=== PATIENT | male | born 1955 | race Caucasian/White ===

== ENCOUNTER 2018-01-18 06:06 | Inpatient (IN) | payer BC ==
[~2018-01-18] VITALS: Ht 190.5 cm; Wt 136.1 kg
[2018-01-18] VITALS (69 sets, daily range): BP systolic 57–105; BP diastolic 21–60
--- NOTE | 2018-01-18 06:10 | NUR ---
TO BED 9 BIB PARAMEDICS C/O L SIDED CHEST PAIN AND BACK PAIN. PT AAOX4 NO ACUTE DISTRESS NOTED, RESP EVEN AND UNLABORED. PER EMS REPORT PT WAS DISCHARGED FROM [facility] YESTERDAY TO THE SAME COMPLAINT. PLACE PT ON CARDIAC MONITORING, CONTINUOUS POX, O2@2L/NC.
[2018-01-18] MEDS ORDERED: ONDANSETRON HCL/PF 4 MG/2 ML VIAL ONE (06:30)
[2018-01-18] MEDS ORDERED: ONDANSETRON HCL/PF 4 MG/2 ML VIAL IVP ONE (06:30)
[2018-01-18] MEDS: IV NS 0.9% 1,000 ML BAG IV ONE ×2 (06:42→06:43)
[2018-01-18 06:46] LABS: BASOPHILS % (AUTO) 0.2 % (0.0-2.0); HEMATOCRIT 30 % (39-51); HEMOGLOBIN 10.3 g/dL (13.5-17.5); LYMPHOCYTES # (AUTO) 0.9 /CMM (0.8-4.8); LYMPHOCYTES % (AUTO) 7.6 % (20.0-44.0); MEAN CORPUSCULAR HGB CONC 34 g/dl (31.0-36.0); MEAN CORPUSCULAR VOLUME 90 fL (80-96); MONOCYTES # (AUTO) 0.2 /CMM (0.1-1.30); MONOCYTES % (AUTO) 2.1 % (2.0-12.0); NEUTROPHILS # (AUTO) 10.4 /CMM (1.8-8.9); NEUTROPHILS % (AUTO) 90.1 % (43.0-81.0); PLATELET COUNT (AUTO) 126 /CMM (150-450); RDW COEFFICIENT OF VARIATION 15.8 (11.5-15.0); RED BLOOD CELL COUNT(AUTO) 3.37 MIL/uL (4.5-6.0); WHITE BLOOD COUNT (AUTO) 11.6 K/uL (4.3-11.0)
[2018-01-18 07:05] LABS: TROPONIN I 0.039 ng/mL (0.00-0.056)
[2018-01-18 07:07] LABS: INR 1.03 (0.87-1.13)
--- NOTE | 2018-01-18 07:10 | NUR ---
RECEIVED REPORT FOR EMMY.
[2018-01-18 07:17] LABS: CALCIUM, SERUM 10.1 mg/dL (8.5-10.1); CREATININE 1.6 mg/dL (0.6-1.3); POTASSIUM 4.4 mmol/L (3.5-5.1)
[2018-01-18 07:23] LABS: ALBUMIN 2.2 g/dL (3.4-5.0); BILIRUBIN,DIRECT 0.5 mg/dL (0.0-0.2); TOTAL PROTEIN, SERUM 4.2 g/dL (6.4-8.2)
--- NOTE | 2018-01-18 07:50 | NUR ---
URINE OBTAINED AND SENT TO LAB.
[2018-01-18] MEDS ORDERED: IPRA0.2S9 IH (07:57)
[2018-01-18] MEDS ORDERED: DIGO125T PO (07:57)
[2018-01-18] MEDS ORDERED: METO25TA20 PO (07:57)
[2018-01-18] MEDS ORDERED: MAG30ORA PO (07:57)
[2018-01-18] MEDS ORDERED: HEPA500039 SQ (07:57)
[2018-01-18] MEDS ORDERED: POSA200O PO (07:57)
[2018-01-18] MEDS ORDERED: ACET-868 PO (07:57)
[2018-01-18] MEDS ORDERED: UMEC62.5 IH (07:57)
[2018-01-18] MEDS ORDERED: PRED20TA PO (07:57)
[2018-01-18] MEDS ORDERED: FURO-145 PO (07:57)
[2018-01-18] MEDS ORDERED: TAMS-12 PO (07:57)
[2018-01-18] MEDS ORDERED: LEVA0.6320 IH (07:57)
[2018-01-18] MEDS ORDERED: FOLI1TAB16 PO (07:57)
[2018-01-18] MEDS ORDERED: IV NS 0.9% 1,000 ML BAG IV ONE (08:30)
[2018-01-18 08:31] LABS: APPEARANCE,URINE CLEAR (CLEAR); BILIRUBIN,URINE NEGATIVE (NEGATIVE); BLOOD, URINE NEGATIVE Ery/uL (NEGATIVE); COLOR,URINE YELLOW (YELLOW); KETONES,URINE NEGATIVE (NEGATIVE); LEUKOCYTE ESTERASE ,URINE NEGATIVE (NEGATIVE); NITRITE, URINE NEGATIVE (NEGATIVE); PROTEIN,URINE NEGATIVE (NEGATIVE); UGLUCOSE NEGATIVE (NEGATIVE); UROBILINOGEN,URINE 0.2 EU/dL (0.2)
--- NOTE | 2018-01-18 08:54 | NUR ---
PAGED DR. HOWARD FOR ADMISSION
[2018-01-18] MEDS ORDERED: MORPHINE SULFATE INJ 2 MG/ML DISP.SYRIN IV ONE (09:00)
[2018-01-18] MEDS ORDERED: MORPHINE SULFATE INJ 4 MG/ML DISP.SYRIN ONE (09:00)
--- NOTE | 2018-01-18 09:03 | NUR ---
REPORT GIVEN TO EDILSON KIM FOR EMMY UPON ADMISSION. PATIENT ASSIGNED TO ROOM 104
--- NOTE | 2018-01-18 09:25 | NUR ---
[address]ND PAGE TO DR. HOWARD FOR ADMISSION
--- NOTE | 2018-01-18 09:40 | NUR ---
VERBAL ORDER BY DR. HAWK FOR 3RD BAG OF NS. GIVEN VIA PRESSURE BAG, RIGHT WRIST, 18G, IVPB.
--- NOTE | 2018-01-18 09:55 | NUR ---
VERBAL ORDER DR HAWK ETOMIDATE 20 MG SUX 120 MG
--- NOTE | 2018-01-18 09:55 | NUR ---
ETOMIDATE 20 MG GIVEN
--- NOTE | 2018-01-18 09:56 | NUR ---
SUX 120 MG GIVEN
[2018-01-18] MEDS ORDERED: PROPOFOL 0 ML ONE (09:57)
--- NOTE | 2018-01-18 10:00 | NUR ---
ASSIGNED TO ICU 256
--- NOTE | 2018-01-18 10:00 | NUR ---
ROWE CATHETER INSERTED USING STERILE TECHNIQUE, 100 YELLOW CLEAR URINE OUTPUT NOTED
[2018-01-18] MEDS ORDERED: CT SWABBABLE VALVE TRANS SET 1 EA INFUS.SET MC ONE (10:04)
[2018-01-18] MEDS ORDERED: IOHEXOL-350 100 ML VIAL IV ONE (10:04)
--- NOTE | 2018-01-18 10:05 | NUR ---
PT TAKEN TO CT
[2018-01-18] MEDS ORDERED: MIDAZOLAM 50 MG/10 ML VIAL ONE (10:22)
--- NOTE | 2018-01-18 10:26 | NUR ---
VERBAL ORDER DR HAWK VERSED 5MG IV X1
--- NOTE | 2018-01-18 10:26 | NUR ---
PT BACK FROM CT
--- NOTE | 2018-01-18 10:50 | NUR ---
AT BEDSIDE FOR CENTRAL LINE INSERTION.
[2018-01-18 10:59] LABS: BAND % (MANUAL) 1 % (0.0-5.0); LYMPHOCYTES % (MANUAL) 6 % (16-48); MONOCYTES % (MANUAL) 4 % (0-11.0); NEUTROPHILS % (MANUAL) 89 (42-76)
[2018-01-18] MEDS ORDERED: ETOMIDATE 2 MG/ML VIAL IV ONE (11:00)
[2018-01-18] MEDS ORDERED: NOREPINEPHRINE 8 MG in IV D5W 500 ML IV PRN (11:00)
[2018-01-18] MEDS ORDERED: MIDAZOLAM HCL 100 MG in IV NS 0.9% 80 ML IV PRN (11:00)
[2018-01-18] MEDS ORDERED: MIDAZOLAM HCL 5 MG/5ML VIAL IV ONE (11:00)
[2018-01-18] MEDS ORDERED: SUCCINYLCHOLINE CHLORIDE 20 MG/ML VIAL IV ONE (11:00)
--- NOTE | 2018-01-18 11:25 | NUR ---
REPORT GIVEN TO DARELL KIM FOR EMMY UPON ADMISSION.
[2018-01-18] MEDS ORDERED: VANCOMYCIN 1 GM in IV D5W 250 ML IV SCH (11:30)
[2018-01-18] MEDS ORDERED: ZOSYN IVPB 3.375 G in IV D5W 50ml IV ONE (12:00)
[2018-01-18 12:29] LABS: IRON, SERUM 176 ug/dl (50-175); TOTAL IRON BINDING CAPACITY 212 ug/dl (250-450)
[2018-01-18] MEDS: NOREPINEPHRINE 8 MG in IV D5W 500 ML IV PRN ×2 (12:30→14:41)
--- NOTE | 2018-01-18 12:35 | NUR ---
MEDIA SALES EXECUTIVE NOTES RECEIVED PATIENT FROM ER , SEDATED WITH VERSED @ 3MG/HR , RESPONSIVE TO DEEP PAIN STIMULI , NOT IN ACUTE DISTRESS , RESPIRATIONS EVEN AND UNLABORED WITH SPO2 OF 100% VIA MECHANICAL VENT SETTINGS ORDERED , ETT 7.5/ IN PLACE , SR 85 ON BEDSIDE MONITOR , FC DRAINING WELL VIA GRAVITY WITH CLEAR YELLOW URINE , R SUBCLAVIAN TLC WITH VERSED @ 3MG/HR , LEVOPHED @ 16MCG/MIN INFUSING WELL , R WRIST @ 18 PATENT AND INTACT SL , , SKIN ASSESSMENT DONE , TOOK PICTURES AND PLACED IN THE CHART , WOUND CONSULT ORDERED , ALL NEEDS ATTENDED , BED ON LOW AND LOCKED POSITION , SIDE RAILS X2 ,CALL LIGHT WITHIN REACH , HOB @ 35 , WILL CONTINUE TO MONITOR .
--- NOTE | 2018-01-18 12:36 | NUR ---
PATIENT TRANSPORTED TO ICU, 255 VIA ACLS PROTOCOL. RNDARELL TO PROVIDE EMMY.
[2018-01-18] MEDS: IV NS 0.9% 1,000 ML IV PRN ×2 (12:52→19:09)
[2018-01-18] MEDS ORDERED: FEE PK DOSING 1 MIN EA MC ONE (12:54)
[2018-01-18] MEDS ORDERED: ZOLPIDEM TARTRATE 5 MG TABLET PO PRN (13:00)
[2018-01-18] MEDS ORDERED: PIPERACILLIN /TAZOBACTAM 3.375 G in IV D5W 100 ML IV SCH (13:00)
[2018-01-18] MEDS ORDERED: HYDROCODONE/APAP 5/325MG 1 EACH TABLET PO PRN (13:00)
[2018-01-18] MEDS ORDERED: ONDANSETRON HCL/PF 4 MG/2 ML VIAL IVP PRN (13:00)
[2018-01-18] MEDS ORDERED: ACETAMINOPHEN 325 MG TABLET PO PRN (13:00)
[2018-01-18] MEDS ORDERED: MAGNESIUM HYDROXIDE 30 ML UDC PO PRN (13:00)
[2018-01-18] MEDS: ENOXAPARIN SODIUM 40 MG/0.4 ML DISP.SYRIN SQ SCH (13:00)
[2018-01-18] MEDS ORDERED: MAG HYDROX/AL HYDROX/SIMETH 30 ML UDC PO PRN (13:00)
[2018-01-18] MEDS ORDERED: VANCOMYCIN 1 GM in IV NS 0.9% 250 ML IV SCH (13:00)
[2018-01-18 13:12] LABS: FERRITIN 4108 ng/mL (8-388); FREE PSA < 0.06 ng/mL (0.00-45); THYROID STIMULATING HORMONE 2.399 uIU/mL (0.358-3.74)
[2018-01-18] MEDS: PIPERACILLIN /TAZOBACTAM 3.375 G in IV NS 0.9% 50 ML IV SCH ×2 (13:48→19:51)
[2018-01-18 14:56] LABS: ABG BASE EXCESS -5.1 mmol/L; ABG OXYGEN SATURATION 98.7 % (92.0-98.5); ABG PCO2 28.5 mmHg (35.0-45.0); ABG PH 7.431 (7.350-7.450); ABG PO2 442.6 mmHg (75.0-100.0); AaDO2 241.9 mmHg; COHb 0.3 % (0.5-1.5); MetHb 0.9 % (0.0-1.5); O2Hb 97.5 % (94.0-97.0); PEEP,BG 0 cm H2O; SITE, ABG Right Radial; VT, ABG 600 mL
[2018-01-18] MEDS: NOREPINEPHRINE 16 MG in IV D5W 500 ML IV PRN ×2 (16:25→23:01)
[2018-01-18] MEDS: PROPOFOL 100 ML IV PRN (16:26)
--- NOTE | 2018-01-18 16:30 | NUR ---
SEAT COVER CUTTER NOTES PATIENT STABLE S/P US GUIDED THORACENTESIS OF THE LEFT LUNG NOTED WITH 600ML CLEAR PINK OUTPUT , SPECIMEN LABELED AND SENT TO LAB . AWAITING FOR STAT CHEST XRAY RESULT
--- NOTE | 2018-01-18 16:32 | NUR ---
PROPERTY CONDITION ASSESSOR NOTES TABITHA LAYNE RN NOTIFIED THAT PT IS MAX ON LEVOPHED , PER MD START NEOSYNEPRINE QUAD DOSE , ORDERS CARRIED OUT BY CHARGE NURSE
[2018-01-18] MEDS: PHENYLEPHRINE 80 MG in IV NS 0.9% 250 ML IV PRN ×2 (16:50→21:38)
--- NOTE | 2018-01-18 17:00 | NUR ---
ENGAGEMENT MANAGER NOTES DIPRIVAN HELD , SEDATION VACATION , NO RESPONSE VIA DEEP PAIN STIMULI , PT NOTED WITH POSITIVE GAG AND COUGH REFLEX , PUPILS PERRLA 2 MM BRISK , WILL CONTINUE TO MONITOR.
--- NOTE | 2018-01-18 17:13 | NUR ---
LICENSING SPECIALIST NOTES NOTIFIED DR HOWARD THAT PATIENT IS ON MAX DOSE OF LEVO AND SHEREE , PER MD START VASOPRESSIN 0.04U/HR WITH NO TITRATION , AND START T ON HYDROCORTISONE 100MG IV TID FIRST DOSE NOW , AND FLORINEF 0.1MG FIRST DOSE NOW AND DAILY VIA NGT ,
[2018-01-18] MEDS ORDERED: FLUDROCORTISONE 0.1 MG TABLET PO SCH (17:30)
[2018-01-18] MEDS ORDERED: VASOPRESSIN INJ 50 UNIT in IV D5W 497.5 ML IV PRN (17:30)
[2018-01-18 17:43] LABS: HEMATOCRIT 21 % (39-51); HEMOGLOBIN 7.1 g/dL (13.5-17.5); LYMPHOCYTES # (AUTO) 2.1 /CMM (0.8-4.8); LYMPHOCYTES % (AUTO) 8.9 % (20.0-44.0); MEAN CORPUSCULAR HGB CONC 34 g/dl (31.0-36.0); MEAN CORPUSCULAR VOLUME 90 fL (80-96); MONOCYTES # (AUTO) 0.5 /CMM (0.1-1.30); MONOCYTES % (AUTO) 2.3 % (2.0-12.0); NEUTROPHILS # (AUTO) 20.8 /CMM (1.8-8.9); NEUTROPHILS % (AUTO) 88.8 % (43.0-81.0); RDW COEFFICIENT OF VARIATION 16.4 (11.5-15.0); RED BLOOD CELL COUNT(AUTO) 2.35 MIL/uL (4.5-6.0); WHITE BLOOD COUNT (AUTO) 23.4 K/uL (4.3-11.0)
[2018-01-18] MEDS: HYDROCORTISONE SOD SUCCINATE 100 MG/2 ML VIAL IV SCH (17:48)
--- NOTE | 2018-01-18 17:57 | NUR ---
RT END OF THE SHIFT REPORT, PT. 62 Y OLD MALE CALLED FROM ER INTUBATION BY ED @[id number] WITH ETT # 7.5 @ 26 CM LIPLINE SECURED GOOD COLOR EXCHANGED T/O CAPNOGRAPHY. B/S BILATERALLY NOTED X4 RT AT THE BEDSIDE. PLACED ON VENT WITH NOTED SETTINGS, VENT ALARMS ARE SET AND AUDIBLE WITH AMBU BAG AT THE BEDSIDE. BRANCHER CUFF PRESSURE NOTED. VENT IS PLUGGED INTO RED OUTLET. B/S BILATERALLY RALES EQUAL CHEST RISE NOTED. SX MODERATE THICK YELLOW SECRETIONS. NO RESPIRATORY DISTRESS NOTED T/O SHIFT, WILL CONTINUE TO MONITOR. FIO2 TITRATED POST ABG , REPORT WILL BE GIVEN TO PM SHIFT. PT. REMAIN STABLE. Addendum: 01/18/18 at 1803 by GUY HAYNES RT Amended: Links added.
--- NOTE | 2018-01-18 17:57 | NUR ---
FORWARDER OPERATOR NOTES NOTIFIED DR HOWARD REGARDING REPEAT CBC RESULT RECEIVED ORDER FOR 2 UNITS PRBC AND STOOL OB X3 , ORDERS CARRIED OUT
--- NOTE | 2018-01-18 18:24 | NUR ---
GAME SHOW HOST NOTES NOTIFIED DR HOWARD REGARDING LACTIC ACID OF 2.3 ,AWAITING FOR CALL BACK
--- NOTE | 2018-01-18 18:40 | NUR ---
CELL POURER NOTES MD AWARE OF REPEAT LACTIC OF 2.3 , NO NEW ORDERS RECEIVED
[2018-01-18 18:42] LABS: PLATELET COUNT (AUTO) 165 /CMM (150-450)
[2018-01-18 18:46] LABS: BAND % (MANUAL) 1 % (0.0-5.0); LYMPHOCYTES % (MANUAL) 11 % (16-48); MONOCYTES % (MANUAL) 2 % (0-11.0); NEUTROPHILS % (MANUAL) 86 (42-76)
--- NOTE | 2018-01-18 18:50 | NUR ---
ADVANCED PRACTICE PSYCHIATRIC NURSE NOTES DR HOWARD AT BEDSIDE , EXPLAINED THE PLAN OF CARE AND PT PROGNOSIS AT THE FAMILY , NOTIFIED DR HOWARD THAT PT IS ON MAX DOSE OF LEVO , SHEREE AND VASO , ASKED IF HE WANTS TO ADD 4TH PRESSORS , MD AWARE . NO NEW ORDERS RECEIVED
--- NOTE | 2018-01-18 19:10 | NUR ---
SUPERVISOR SCREEN MAKING NOTES PATIENT STILL SEDATED ON DIPRIVAN 5MC KG/MIN RESPONSIVE TO DEEP PAIN STIMULI , NOT IN ACUTE DISTRESS , RESPIRATIONS EVEN AND UNLABORED WITH SPO2 OF 100% VIA MECHANICAL VENT SETTINGS ORDERED , ETT 7.[address] , ST 120'S ON BEDSIDE MONITOR , FC DRAINING WELL VIA GRAVITY WITH CLEAR YELLOW URINE , R SUBCLAVIAN TLC WITH , LEVOPHED , SHEREE , VASO ON MAX DOSE INFUSING WELL , R WRIST @ 18 PATENT AND INTACT SL , ALL NEEDS ATTENDED , BED ON LOW AND LOCKED POSITION , SIDE RAILS X2 ,CALL LIGHT WITHIN REACH , HOB @ 35 , WILL CONTINUE TO MONITOR .
--- NOTE | 2018-01-18 19:20 | NUR ---
ICU/RN RECEIVED PT UNRESPONSIVE TO VERBAL OR TACTILE STIMULATION,OD DIPRIVAN DRIP AT 5MCG/KG/MIN.ON VASOPRESSOR X3 LEVOPHED, PHENYLEPHRINE AND PITRESSIN MAXIMUM DOSE.SBP FROM 76-82MMHG.
--- NOTE | 2018-01-18 20:15 | NUR ---
ICU/BAGGAGE AGENT SUPERVISOR AT BED SIDE VISITING,DETAILED REPORT GIVEN.REMAINS OFF LEVOPHED,NO CHANGE ON NEURO STATUS.
--- NOTE | 2018-01-18 20:30 | NUR ---
ICU/RN LESLIE GAN NOTIFIED ABOUT VANCOMYCIN DOSE PT. HAVE 2 DIFFERENT DOSES,AND SAID TO CALL PHARMACY.LEFT MESSAGE TO PHARMACY.
--- NOTE | 2018-01-18 21:20 | NUR ---
ICU/RN SPOKE TO PHARMACIST EXTRACT WRINGER RE:VANCOMYCIN DOSING AND SHE SAID"DO NOT GIVE VANCOMYCIN FOR TONIGHT."
[2018-01-18] MEDS ORDERED: NOREPINEPHRINE 4 MG/4 ML AMPUL IV ONE (21:21)
[2018-01-18] MEDS ORDERED: PHENYLEPHRINE 10 MG/ML VIAL ONE (21:22)
[2018-01-18] MEDS ORDERED: IV NS 0.9% 500 ML IV ONE (21:30)
--- NOTE | 2018-01-18 21:30 | NUR ---
ICU/RN SPOKE W/ ELVIA ASSURANCE SENIOR RE:PT'S CONDITION-LOW BP AND LACTIC ACID OF 2.8.ORDERS RECEIVED AND CARRIED OUT
--- NOTE | 2018-01-18 22:05 | NUR ---
ICU/RN DR. COULTER CALLED TO INQUIRE ABOUT PT'S CONDITION,CONDITION REPORT GIVEN,MD WILL SEE PT IN AM.
[2018-01-19] VITALS (117 sets, daily range): BP systolic 46–152; BP diastolic 25–108
[2018-01-19] MEDS ORDERED: VANCOMYCIN 0.75 GM in IV NS 0.9% 250 ML IV SCH ×2
[2018-01-19] MEDS ORDERED: VANCOMYCIN 1 GM VIAL ONE (00:21)
[2018-01-19] MEDS ORDERED: VANCOMYCIN 2 GM in IV NS 0.9% 500 ML IV ONE (01:00)
[2018-01-19] MEDS: PHENYLEPHRINE 80 MG in IV NS 0.9% 250 ML IV PRN ×4 (01:17→15:04)
--- NOTE | 2018-01-19 01:30 | NUR ---
ICU/RECREATION ATTENDANT SUPERVISOR REMAINS AT BEDSIDE,PT AGITATED SECONDARY TO FAMILY CONTINUOUSLY STIMULATING PATIENT.EXPLAIN TO FAMILY RE:NEED NOT TO DO SO PT CAN NOT RECEIVE DIPRIVAN DUE TO LOW BP.FAMILY ACCEPTED EXPLANATION AND THEY DECIDED TO GO HOME,FAMILY REASSURED THAT IF THERE IS A CHANGE IN PT'S CONDITION I'LL GIVE THEM A CALL.
[2018-01-19] MEDS: PIPERACILLIN /TAZOBACTAM 3.375 G in IV NS 0.9% 50 ML IV SCH ×3 (02:24→15:05)
--- NOTE | 2018-01-19 03:11 | NUR ---
ICU/RN PT RECEIVING SECOND UNIT OF PRBC,SBP 81-95MMHG.
--- NOTE | 2018-01-19 03:45 | NUR ---
ICU/RN LEVOPHED,PHENYLEPHRINE,AND PITRESSIN DRIP SLOWLY BEING TITRATED.PT EXTREMELY AGITATED DIPRIVAN DRIP RESTARTED AT 5MC/KG/MIN.
[2018-01-19] MEDS ORDERED: PHENYLEPHRINE 10 MG/ML VIAL ONE (03:53)
[2018-01-19] MEDS: PROPOFOL 100 ML IV PRN (03:58)
[2018-01-19] MEDS: IV NS 0.9% 1,000 ML IV PRN ×2 (03:59→13:04)
[2018-01-19 04:32] LABS: HEMATOCRIT 33 % (39-51); HEMOGLOBIN 11.4 g/dL (13.5-17.5); LYMPHOCYTES # (AUTO) 1.7 /CMM (0.8-4.8); LYMPHOCYTES % (AUTO) 7.2 % (20.0-44.0); MEAN CORPUSCULAR HGB CONC 34 g/dl (31.0-36.0); MEAN CORPUSCULAR VOLUME 93 fL (80-96); MONOCYTES # (AUTO) 0.5 /CMM (0.1-1.30); MONOCYTES % (AUTO) 2.2 % (2.0-12.0); NEUTROPHILS # (AUTO) 21.1 /CMM (1.8-8.9); NEUTROPHILS % (AUTO) 90.6 % (43.0-81.0); PLATELET COUNT (AUTO) 130 /CMM (150-450); RDW COEFFICIENT OF VARIATION 15.7 (11.5-15.0); RED BLOOD CELL COUNT(AUTO) 3.61 MIL/uL (4.5-6.0); WHITE BLOOD COUNT (AUTO) 23.3 K/uL (4.3-11.0)
[2018-01-19 04:49] LABS: CALCIUM, SERUM 8.5 mg/dL (8.5-10.1); PHOSPHORUS 4.7 mg/dL (2.5-4.9); POTASSIUM 5.4 mmol/L (3.5-5.1)
[2018-01-19 04:56] LABS: THYROID STIMULATING HORMONE 2.972 uIU/mL (0.358-3.74)
[2018-01-19 04:57] LABS: BAND % (MANUAL) 3 % (0.0-5.0); LYMPHOCYTES % (MANUAL) 5 % (16-48); MONOCYTES % (MANUAL) 2 % (0-11.0); NEUTROPHILS % (MANUAL) 90 (42-76)
--- NOTE | 2018-01-19 06:50 | NUR ---
ICU/RN DR DRAKE IN TO SEE PT,CONDITION REPORT GIVEN.ORDERS GIVEN.PT CURRENTLY ON PITRESSIN DRIP AT 0.02UNITS/MIN.LEVOPHED AT 32MCG/MIN,PHENYLEPHRINE AT 280MCG/MIN.
[2018-01-19] MEDS: NOREPINEPHRINE 16 MG in IV D5W 500 ML IV PRN ×3 (06:59→20:36)
--- NOTE | 2018-01-19 07:00 | NUR ---
ICU/RN REPORT AND CARE OF PT.GIVEN TO MAYCO KIM.
--- NOTE | 2018-01-19 07:10 | NUR ---
received patient sedated dip running at 5mcg/kg/min and patient agitated biting at ett; bite block in place. will titrate dip up for comfort as tolerated. ett 7.5 26 at lip. patient vent settings as ordered. tolerating well. grace cath in place draining to gravity. og tube 65 at lip. patient present with right wrist saline lock. right subclavian central with diprovan running at 5 mcg/kg/min, vasopressin at 0.02 u/min (per md ferrer continue running. new order placed for updated order) , levophed at 32mcg/min, and irseal at 280mcg/min. will titrate as needed. Addendum: 01/19/18 at [address] RN safety precautions in place aspiration precautions in place. will round prn
--- NOTE | 2018-01-19 07:15 | NUR ---
patient agitated increased dip to 10mcg/kg/min and levo to 34mcg/min
--- NOTE | 2018-01-19 07:20 | NUR ---
dr ferrer at bedside. updated on patient condition, labs, vs. per md in regards to pneumothorax on cest x increase fi02 to 100% and obtain abg. md aware of low na 125 and k of 5.4. patient pale, cold and clammy. pulses thready on peripheral check.
[2018-01-19] MEDS: HYDROCORTISONE SOD SUCCINATE 100 MG/2 ML VIAL IV SCH ×3 (08:05→16:56)
[2018-01-19 08:06] LABS: IMMUNOGLOBULIN A, SERUM 6 mg/dL (61-437); IMMUNOGLOBULIN G, SERUM 51 mg/dL (700-1600); IMMUNOGLOBULIN M, SERUM 16 mg/dL (20-172)
[2018-01-19 08:17] LABS: ABG BASE EXCESS -8.3 mmol/L; ABG OXYGEN SATURATION 98.8 % (92.0-98.5); ABG PCO2 26.2 mmHg (35.0-45.0); ABG PH 7.382 (7.350-7.450); AaDO2 183.8 mmHg; COHb 0.2 % (0.5-1.5); O2Hb 97.6 % (94.0-97.0); PEEP,BG 0 cm H2O; SITE, ABG Left Radial
[2018-01-19] MEDS: VASOPRESSIN INJ 50 UNIT in IV D5W 497.5 ML IV PRN (09:38)
[2018-01-19] MEDS: Z GUARD REMEDY 2 OZ OINT TP PRN ×2 (09:38→16:57)
[2018-01-19 09:39] LABS: ALBUMIN 1.8 g/dL (3.4-5.0); BILIRUBIN,DIRECT 0.3 mg/dL (0.0-0.2); BILIRUBIN,TOTAL 0.8 mg/dL (0.2-1.0); TOTAL PROTEIN, SERUM 3.6 g/dL (6.4-8.2)
[2018-01-19 10:27] LABS: TROPONIN I 0.097 ng/mL (0.00-0.056)
--- NOTE | 2018-01-19 10:47 | NUR ---
DR MOJICA AT BEDSIDE. MD UPDATED ON PATIENT CONDITION, VS, LABS, URINE OUTPUT AND MEDICATIONS, AND CHEST X. PER MD TITRATE VENT SETTINGS TV 500-550 TOLERATED. AND TITRATE FI02; RT ABBOTT AT BEDSIDE. TV NOW 500 AND FI02 60%. PER MD DISCONTINUE PROPOFOL DRIP AND ORDER VERSED DRIP FOR SEDATION.
--- NOTE | 2018-01-19 10:48 | NUR ---
RT PER DR MOJICA VT LOWERED TO 500 AND FIO2 TITRATED TO 60%. VENT ALARMS CHECKED + AUDIBLE. CUFF PRESSURE CHECKED DISTILLERY LABORER. SX'D WITH SCANT CLEAR SECRETIONS. B/S JANESSA BLACKBURN. PATIENT IN CRITICAL CONDITION. FAMILY AT BEDSIDE. Addendum: 01/19/18 at 1049 by SCAR HUI RT Amended: Links added.
--- NOTE | 2018-01-19 11:09 | NUR ---
DR HOWARD AT BEDSIDE. NOTIFIED MD CURRENT DRIP STATUS LEVO 36, SHEREE 280 AND RECEIVED VASOPRESSIN AT 0.02. PER MD KEEP VASOPRESSIN AT 0.04 WHEN IN USE AND IF BP STABLE STOP VASOPRESSIN AND MAX OUT LEVO AND SHEREE FIRST BEFORE RESUMING VASOPRESSIN. PER OK TO CONTINUE LOVENOX.
[2018-01-19] MEDS: FLUDROCORTISONE 0.1 MG TABLET PO SCH ×2 (11:23→17:13)
[2018-01-19] MEDS ORDERED: FLUDROCORTISONE 0.1 MG TABLET PO SCH (12:00)
[2018-01-19] MEDS ORDERED: SODIUM POLYSTYRENE SULFONATE 15 G/60 ML BOTTLE NG ONE (12:00)
--- NOTE | 2018-01-19 12:00 | NUR ---
DR RENETTA MILLER AT BEDSIDE. UPDATED ON PATIENT CONDITION, VS, LABS AND MINIMAL URINE OUTPUT. PER MD INITIATE CVP MONITORING; CURRENT READING 8. MD AWARE OF ELECTROLYTE LABS.
--- NOTE | 2018-01-19 12:00 | NUR ---
RT CANCELLED DUPLICATE ABG ORDER PER POLICY
[2018-01-19] MEDS: ENOXAPARIN SODIUM 40 MG/0.4 ML DISP.SYRIN SQ SCH (12:04)
--- NOTE | 2018-01-19 12:10 | NUR ---
NOTIFIED DR MOJICA OF UPDATED ABG RESULTS. PER MD PLACE PATIENT ON 40% FI02. NO OTHER ORDERS
[2018-01-19 12:17] LABS: ABG BASE EXCESS -9.6 mmol/L; ABG OXYGEN SATURATION 98.1 % (92.0-98.5); ABG PCO2 23.8 mmHg (35.0-45.0); ABG PH 7.379 (7.350-7.450); ABG PO2 165.2 mmHg (75.0-100.0); AaDO2 92.6 mmHg; COHb 0.3 % (0.5-1.5); MetHb 0.8 % (0.0-1.5); PEEP,BG 0 cm H2O; SITE, ABG Left Radial
[2018-01-19] MEDS: MIDAZOLAM HCL 100 MG in IV NS 0.9% 80 ML IV PRN (12:21)
--- NOTE | 2018-01-19 12:55 | NUR ---
MEDICAL RECORDS RELEASE REQUEST SIGNED BY AND FAXED OVER TO DR JALLOH OFFICE. PATIENT MAXED OUT ON LEVO AND SHEREE AT THIS TIME. Addendum: 01/19/18 at [address] RN DISREGARD LEVO/SHEREE DRIP. INCORRECT. SEE IV SPREADSHEET
[2018-01-19] MEDS: ALBUMIN 25% 25 GM in PREMIX 1 EA IV SCH ×2 (13:06→17:13)
[2018-01-19] MEDS: VANCOMYCIN 1 GM in IV D5W 250 ML IV SCH ×2 (14:04→23:00)
--- NOTE | 2018-01-19 16:23 | NUR ---
continuing to increase versed drip per order. patient continues to be agitated and bite ett will continue to monitor. at this time patient is calm and cooperative.
--- NOTE | 2018-01-19 16:24 | NUR ---
GI specialist destinee at bedside. updated on patient condition, labs, vs. per md no diagnostics until more stable.
--- NOTE | 2018-01-19 17:45 | NUR ---
AT BEDSIDE PATIENT BECOMES AGITATED WHEN MOVED/SPOKEN TO. BITING ETT. TITRATING VERSED PER PROTOCOL
--- NOTE | 2018-01-19 19:00 | NUR ---
RN INITIAL NOTES RECEIVED THE PATIENT SEDATED ON BED WITH VERSED @ 6MCG/HR, EASILY AROUSABLE TO TOUCH STIMULI. CURRENTLY INTUBATED AND ON VENT WITH SETTINGS AC 12, TV 500, FIO2 40%, PEEP 0, ETT 7.5/26@LIP, SATURATING WELL, NO S/S OF RESP DISTRESS. SR ON THE MONITOR, HR 90'S. CURRENTLY ON LEVO @ 38MCG/MIN AND SHEREE @ 100MCG/MIN TO KEEP SBP > 90. OGT IS CLAMPED. ROWE IN PLACE WITH MINIMAL OUTPUT. RIGHT SUBCLAVIAN 3LUMEN WITH NS @ 125MLS/HR, FLUSHED AND PATENT, NO S/S OF INFILTRATION/INFECTION, DRESSING CDI. BED LOW AND LOCKED, SIDERAILS UP, BILATERAL SOFT WRIST RESTRAINTS IN PLACE FOR SAFETY. WILL MONITOR CLOSELY.
[2018-01-19] MEDS: MICAFUNGIN SODIUM 100 MG in IV NS 0.9% 100 ML IV SCH (19:22)
[2018-01-19] MEDS: MEROPENEM 500 MG in IV NS 0.9% 50 ML IV SCH (20:34)
[2018-01-20] VITALS (105 sets, daily range): BP systolic 79–118; BP diastolic 25–66
[2018-01-20] MEDS: FLUDROCORTISONE 0.1 MG TABLET PO SCH ×2 (00:01→05:03)
[2018-01-20] MEDS: ALBUMIN 25% 25 GM in PREMIX 1 EA IV SCH ×2 (00:01→05:04)
--- NOTE | 2018-01-20 02:30 | NUR ---
RN NOTES 0145: NOTIFIED ON-CALL FERRY CAPTAIN LESLIE GAN THAT PATIENT CONVERTED FROM SINUS RHYTHM TO AFIB/AFLUTTER AROUND 0145 WITH HR 130-140'S; CONFIRMED VIA STAT EKG. NOTIFIED HIM THAT PATIENT WAS CURRENTLY ON LEVO 36MCG/MIN AND SHEREE DRIP HAD BEEN OFF SINCE MIDNIGHT. UPON CONVERSION TO AFIB/AFLUTTER @ 0145, MEMBERSHIP SOLICITOR TURNED OFF LEVO DRIP THEN RESTARTED SHEREE @ 100MCG/MIN. 0230: HR REMAINS TO BE AFLUTTER WITH THE HR 90-120'S. PER LUCIAN NELSON, KEEP SHEREE @ MAX DOSE THEN RESTART LEVO TO KEEP SBP > 90.
[2018-01-20] MEDS: IV NS 0.9% 1,000 ML IV PRN ×2 (02:43→17:17)
[2018-01-20] MEDS: PHENYLEPHRINE 80 MG in IV NS 0.9% 250 ML IV PRN ×5 (02:44→22:12)
--- NOTE | 2018-01-20 03:25 | NUR ---
RN NOTES PATIENT CONVERTED TO SINUS RHYTHM WITH HR 90'S.
[2018-01-20 04:51] LABS: HEMATOCRIT 25 % (39-51); HEMOGLOBIN 8.3 g/dL (13.5-17.5); LYMPHOCYTES # (AUTO) 1.5 /CMM (0.8-4.8); LYMPHOCYTES % (AUTO) 5.7 % (20.0-44.0); MEAN CORPUSCULAR HGB CONC 34 g/dl (31.0-36.0); MEAN CORPUSCULAR VOLUME 92 fL (80-96); MONOCYTES # (AUTO) 0.2 /CMM (0.1-1.30); MONOCYTES % (AUTO) 0.6 % (2.0-12.0); NEUTROPHILS # (AUTO) 24.5 /CMM (1.8-8.9); NEUTROPHILS % (AUTO) 93.7 % (43.0-81.0); PLATELET COUNT (AUTO) 137 /CMM (150-450); RDW COEFFICIENT OF VARIATION 15.9 (11.5-15.0); RED BLOOD CELL COUNT(AUTO) 2.67 MIL/uL (4.5-6.0); WHITE BLOOD COUNT (AUTO) 26.2 K/uL (4.3-11.0)
[2018-01-20 05:05] LABS: ALBUMIN 2.2 g/dL (3.4-5.0); BILIRUBIN,TOTAL 0.8 mg/dL (0.2-1.0); CALCIUM, SERUM 7.8 mg/dL (8.5-10.1); CREATININE 2.4 mg/dL (0.6-1.3); MAGNESIUM 1.8 mg/dL (1.8-2.4); PHOSPHORUS 4.9 mg/dL (2.5-4.9); POTASSIUM 4.9 mmol/L (3.5-5.1); TOTAL PROTEIN, SERUM 4.1 g/dL (6.4-8.2)
[2018-01-20 05:09] LABS: TROPONIN I 0.086 ng/mL (0.00-0.056)
[2018-01-20 05:39] LABS: CREATININE, URINE 91.1 MG/DL (30.0-125.0)
[2018-01-20 05:42] LABS: BAND % (MANUAL) 4 % (0.0-5.0); LYMPHOCYTES % (MANUAL) 5 % (16-48); MONOCYTES % (MANUAL) 1 % (0-11.0); NEUTROPHILS % (MANUAL) 90 (42-76)
[2018-01-20 05:44] LABS: OCCULT BLOOD STOOL NEGATIVE (NEGATIVE)
--- NOTE | 2018-01-20 05:45 | NUR ---
PT RECEIVED ORALLY INTUBATED WITH 7.5 ETT @ 25CM PT CURRENTLY ON [facility] VENT AND TOLERATING SETTINGS ORDERED PER MD, SPUTUM SAMPLE WAS SENT TO LAB, JULIO AYALA, SAMPLE SIZE APPROX. 10CC OF THICK WHITE SECRETION COLLECTED. VENT ALARMS ARE AUDIBLE AND VENT PLUGGED INTO RED OUTLET. PT AMBU BAG AT BEDSIDE, AND PT CURRENTLY TOLERATING SETTINGS
[2018-01-20] MEDS: NOREPINEPHRINE 16 MG in IV D5W 500 ML IV PRN ×2 (05:55→17:16)
--- NOTE | 2018-01-20 06:00 | NUR ---
RN CLOSING NOTES PT REMAINS STABLE OF THE MOMENT. PT IS STILL SR, HR 80-90'S. ON LEVO @ 14MCG/MIN, SHEREE @ 300MCG/MIN, AND VERSED @ 7MG/HR. ALL DUE MEDS GIVEN, AM CARE PROVIDED. WILL ENDORSE EMMY TO AM RN
[2018-01-20] MEDS: MIDAZOLAM HCL 100 MG in IV NS 0.9% 80 ML IV PRN ×2 (07:31→19:05)
--- NOTE | 2018-01-20 07:36 | NUR ---
JOURNAL ENTRY AUDIT CLERK RECEIVED PATIENT FROM THE PREVIOUS SHIFT. PATIENT IS IN BED. ORALLY INTUBATED. VENT SETTINGS REVIEWED AND VERIFIED. AFEBRILE. SINUS RHYTHM ON MONITOR. TWO PRESSORS FOR BP SUPPORT. CVP MONITORING. ROWE DRAINING URINE TO GRAVITY. TURNED AND REPOSITIONED FOR COMFORT AND WOUND PREVENTION. WILL CONTINUE TO MONITOR AND PROVIDE CARE.
[2018-01-20] MEDS: HYDROCORTISONE SOD SUCCINATE 100 MG/2 ML VIAL IV SCH ×2 (08:38→17:12)
[2018-01-20] MEDS: MEROPENEM 500 MG in IV NS 0.9% 50 ML IV SCH ×2 (08:38→20:40)
[2018-01-20] MEDS: HEPARIN SODIUM, PORCINE 5000 UNITS/1 ML VIAL SQ SCH ×2 (08:39→20:17)
--- NOTE | 2018-01-20 09:19 | NUR ---
JUNIOR JAVA DEVELOPER SEDATION VACATION. patient rr increases, biting at ett, thrashing head. not tolerating vacation well. restarted on versed after 20 min.
[2018-01-20] MEDS: VANCOMYCIN 1 GM in IV D5W 250 ML IV SCH (12:00)
[2018-01-20] MEDS: Z GUARD REMEDY 2 OZ OINT TP SCH ×2 (12:25→17:12)
--- NOTE | 2018-01-20 17:58 | NUR ---
RT SHIFT REPORT, PT. 62 Y OLD MALE REMAIN ORALLY INTUBATED ETT # 7.5 @ 25 CM LIPLINE WITH NOTED SETTINGS, VENT ALARMS ARE SET AND AUDIBLE WITH AMBU BAG AT THE BEDSIDE. UPFITTER CUFF PRESSURE NOTED. VENT IS PLUGGED INTO RED OUTLET. B/S BILATERALLY RALES EQUAL CHEST RISE NOTED. HME CHANGED SX SMALL THICK PALE SECRETIONS. NO RESPIRATORY DISTRESS NOTED T/O SHIFT, WILL CONTINUE TO MONITOR. REPORT WILL BE GIVEN TO PM SHIFT. PT REMAIN STABLE. AMBU BAT REMAIN AT THE BEDSIDE. Addendum: 01/20/18 at 1800 by GUY HAYNES RT Amended: Links added.
--- NOTE | 2018-01-20 19:00 | NUR ---
RN INITIAL NOTES RECEIVED THE PATIENT SEDATED ON BED WITH VERSED @ 10MCG/HR, EASILY AROUSABLE TO TOUCH STIMULI. CURRENTLY INTUBATED AND ON VENT WITH SETTINGS AC 12, TV 500, FIO2 40%, PEEP 0, ETT 7.5/26@LIP, SATURATING WELL, NO S/S OF RESP DISTRESS. SR ON THE MONITOR, HR 70'S. CURRENTLY ON LEVO @ 6MCG/MIN AND SHEREE @ 300MCG/MIN TO KEEP SBP > 90. OGT IS CLAMPED. ROWE IN PLACE WITH MINIMAL OUTPUT. RIGHT SUBCLAVIAN 3LUMEN WITH NS @ 50MLS/HR, RIGHT EJ 20G IV, BOTH FLUSHED AND PATENT, NO S/S OF INFILTRATION/INFECTION, DRESSING CDI. BED LOW AND LOCKED, SIDERAILS UP, BILATERAL SOFT WRIST RESTRAINTS IN PLACE FOR SAFETY. WILL MONITOR CLOSELY.
--- NOTE | 2018-01-20 19:25 | NUR ---
PT RECEIVED ORALLY INTUBATED WITH 7.5 ETT @ 25CM ON [facility] VENT WITH NOTED SETTINGS. PT IS TOLERATING VENT SETTINGS. VENT ALARMS SET AND AUDIBLE, VENT PLUGGED INTO RED OUTLET, AMBU BAG @ BEDSIDE. SUCTIONED SMALL AMOUNT OF WHITE THICK SECRETIONS. NO RESPIRATORY DISTRESS NOTED AT THIS TIME. WILL CONTINUE TO MONITOR.
[2018-01-20] MEDS: MICAFUNGIN SODIUM 100 MG in IV NS 0.9% 100 ML IV SCH (19:39)
[2018-01-21] VITALS (110 sets, daily range): BP systolic 68–128; BP diastolic 38–84
[2018-01-21] MEDS: PHENYLEPHRINE 80 MG in IV NS 0.9% 250 ML IV PRN ×5 (01:21→22:09)
[2018-01-21] MEDS: MIDAZOLAM HCL 100 MG in IV NS 0.9% 80 ML IV PRN ×2 (05:00→14:35)
[2018-01-21] MEDS: IV NS 0.9% 1,000 ML IV PRN (05:40)
[2018-01-21 05:54] LABS: HEMATOCRIT 24 % (39-51); HEMOGLOBIN 7.9 g/dL (13.5-17.5); LYMPHOCYTES # (AUTO) 1.4 /CMM (0.8-4.8); LYMPHOCYTES % (AUTO) 7.5 % (20.0-44.0); MEAN CORPUSCULAR HGB CONC 33 g/dl (31.0-36.0); MEAN CORPUSCULAR VOLUME 92 fL (80-96); MONOCYTES # (AUTO) 0.1 /CMM (0.1-1.30); MONOCYTES % (AUTO) 0.7 % (2.0-12.0); NEUTROPHILS # (AUTO) 17.6 /CMM (1.8-8.9); NEUTROPHILS % (AUTO) 91.8 % (43.0-81.0); PLATELET COUNT (AUTO) 144 /CMM (150-450); RDW COEFFICIENT OF VARIATION 16.6 (11.5-15.0); RED BLOOD CELL COUNT(AUTO) 2.57 MIL/uL (4.5-6.0); WHITE BLOOD COUNT (AUTO) 19.2 K/uL (4.3-11.0)
[2018-01-21 05:55] LABS: BAND % (MANUAL) 5 % (0.0-5.0)
[2018-01-21 05:56] LABS: LYMPHOCYTES % (MANUAL) 7 % (16-48); NEUTROPHILS % (MANUAL) 88 (42-76)
[2018-01-21 06:10] LABS: *SPE A/G RATIO 1.7 (0.7-1.7); *SPE ALBUMIN 1.9 g/dL (2.9-4.4); *SPE ALPHA-1-GLOBULIN 0.2 g/dL (0.0-0.4); *SPE ALPHA-2-GLOBULIN 0.5 g/dL (0.4-1.0); *SPE BETA GLOBULIN 0.4 g/dL (0.7-1.3); *SPE GLOBULIN, TOTAL 1.1 g/dL (2.2-3.9); *SPE M-SPIKE Not Observed g/dL (Not Observed); *SPEGAMMA GLOBULIN 0.1 g/dL (0.4-1.8)
--- NOTE | 2018-01-21 06:10 | NUR ---
RN CLOSING NOTES PT REMAINS STABLE OF THE MOMENT. ALL DUE MEDS GIVEN, AM CARE PROVIDED. WILL ENDORSE EMMY TO AM RN
[2018-01-21 07:07] LABS: CALCIUM, SERUM 7.9 mg/dL (8.5-10.1); CREATININE 2.7 mg/dL (0.6-1.3); MAGNESIUM 2.1 mg/dL (1.8-2.4); PHOSPHORUS 6.2 mg/dL (2.5-4.9); POTASSIUM 5.3 mmol/L (3.5-5.1)
--- NOTE | 2018-01-21 07:40 | NUR ---
CLINICAL BUSINESS ANALYST RECEIVED PATIENT FROM THE PREVIOUS SHIFT. PATIENT IS IN BED. RESTING COMFORTABLY. SEDATED ON VERSED 10 MG/HR. NO ACUTE DISTRESS.VENT SETTINGS REVIEWED AND VERIFIED. RESTRAINTS ARE ON FOR SAFETY. WILL CONTINUE TO MONITOR AND PROVIDE CARE.
[2018-01-21] MEDS ORDERED: VANCOMYCIN 1 GM in IV D5W 250 ML IV SCH (08:00)
[2018-01-21] MEDS: HYDROCORTISONE SOD SUCCINATE 100 MG/2 ML VIAL IV SCH ×2 (09:50→17:26)
[2018-01-21] MEDS: Z GUARD REMEDY 2 OZ OINT TP SCH ×2 (09:50→17:25)
[2018-01-21] MEDS: HEPARIN SODIUM, PORCINE 5000 UNITS/1 ML VIAL SQ SCH ×2 (09:51→20:38)
[2018-01-21] MEDS: MEROPENEM 500 MG in IV NS 0.9% 50 ML IV SCH ×2 (09:52→20:39)
[2018-01-21 11:34] LABS: ABG BASE EXCESS -9.6 mmol/L; ABG OXYGEN SATURATION 95.6 % (92.0-98.5); ABG PCO2 30.6 mmHg (35.0-45.0); ABG PO2 91.7 mmHg (75.0-100.0); AaDO2 158.3 mmHg; COHb 0.2 % (0.5-1.5); MetHb 1.1 % (0.0-1.5); O2Hb 94.4 % (94.0-97.0); SITE, ABG Left Radial; VT, ABG 500 mL
--- NOTE | 2018-01-21 11:57 | NUR ---
WOUND CARE CONSULT: PT PRESENTS WITH ANASARCA AND 4+ PITTING EDEMA (GENERALIZED) WITH WEEPING EDEMA TO ARMS AND LEGS, SEVERE SCROTAL EDEMA, PRESENT ON ADMISSION. PT ALSO NOTED TO HAVE LEFT BUTTOCK SKIN TEARS, PRESENT ON ADMISSION. ALL SKIN PROTECTION MEASURES IN PLACE AND DISCUSSED WITH NURSING STAFF. PT ON [facility] BED WITH ETS AIR. WILL SEE PRN. CISNEROS IN AGREEMENT WITH PLAN OF CARE. CURRENT TORITO SCORE IS 12. Addendum: 01/21/18 at 1201 by CHALO MORSE WNDNU Amended: Links added.
[2018-01-21] MEDS ORDERED: VANCOMYCIN 0.75 GM in IV D5W 250 ML IV SCH (12:00)
[2018-01-21] MEDS: BACITRACIN/POLYMYXIN B 15 GM TUBE TP SCH (12:25)
--- NOTE | 2018-01-21 12:26 | NUR ---
EDGE GLUER VANCO DOSE HELD PER PHARMACIST RECOMMENDATION. VANCO LEVEL 21 THIS AM.
[2018-01-21] MEDS ORDERED: ALBUMIN 25% 25 GM in PREMIX 1 EA IV ONE (13:00)
[2018-01-21 13:14] LABS: AFP, TUMOR MARKER 3.5 ng/mL (0.0-8.3); CARBOHYDRATE AG 19-9 32 U/mL (0-35)
[2018-01-21 13:14] LABS: CANCER AG, 125 186.4 U/mL (Not Estab.)
[2018-01-21] MEDS: NOREPINEPHRINE 16 MG in IV D5W 500 ML IV PRN (17:31)
--- NOTE | 2018-01-21 17:41 | NUR ---
RT SHIFT REPORT, PT. 62 Y OLD MALE REMAIN ORALLY INTUBATED ETT # 7.5 @ 25 CM LIP LINE WITH NOTED SETTINGS, VENT ALARMS ARE SET AND AUDIBLE WITH AMBU BAG AT THE BEDSIDE. NEWSPAPER PRESS OPERATOR APPRENTICE CUFF PRESSURE NOTED. HME CHANGES, VENT IS PLUGGED INTO RED OUTLET. B/S BILATERALLY RALES EQUAL CHEST RISE NOTED. SX SMALL AMT WHITE SECRETIONS. NO DISTRESS NOTED T/O SHIFT, ABG DONE NO CHANGES PER MD AMBU BAG REMAIN AT THE BEDSIDE. PT. REMAIN STABLE WILL CONTINUE TO MONITOR. REPORT WILL BE GIVEN TO PM SHIFT. Addendum: 01/21/18 at 1749 by GUY HAYNES RT Amended: Links added.
--- NOTE | 2018-01-21 19:00 | NUR ---
RN INITIAL NOTES RECEIVED THE PATIENT SEDATED ON BED WITH VERSED @ 10MCG/HR, EASILY AROUSABLE TO TOUCH STIMULI. CURRENTLY INTUBATED AND ON VENT WITH SETTINGS AC 12, TV 500, FIO2 40%, PEEP 0, ETT 7.5/26@LIP, SATURATING WELL, NO S/S OF RESP DISTRESS. SR ON THE MONITOR, HR 70'S. CURRENTLY ON SHEREE @ 300MCG/MIN TO KEEP SBP > 90. OGT IS CLAMPED. ROWE IN PLACE WITH MINIMAL OUTPUT. RIGHT FEMORAL HD CATH IN INTACT. RIGHT SUBCLAVIAN 3LUMEN WITH TKO, RIGHT EJ 20G IV, BOTH FLUSHED AND PATENT, NO S/S OF INFILTRATION/INFECTION, DRESSING CDI. BED LOW AND LOCKED, SIDERAILS UP, BILATERAL SOFT WRIST RESTRAINTS IN PLACE FOR SAFETY. WILL MONITOR CLOSELY.
[2018-01-21] MEDS: MICAFUNGIN SODIUM 100 MG in IV NS 0.9% 100 ML IV SCH (19:23)
--- NOTE | 2018-01-21 20:43 | NUR ---
RECEIVED PT INTUBATED 7.5 ETT SECURED AT 25CM AT THE LIP. NO RESP DISTRESS NOTED. PT TOLERATING VENT SETTINGS. AC 12, 500, 40%. SX'D FOR SML AMT OF THIN WHITE SECRETIONS. VENT ALARMS SET AND AUDIBLE. AMBU BAG AT BEDSIDE. VENT PLUGGED INTO RED OUTLET. WILL CONTINUE TO MONITOR. Addendum: 01/21/18 at 2044 by ADOLPH SALGUERO RT Amended: Links added.
[2018-01-22] VITALS (108 sets, daily range): BP systolic 68–118; BP diastolic 39–71
[2018-01-22] MEDS: MIDAZOLAM HCL 100 MG in IV NS 0.9% 80 ML IV PRN ×3 (00:41→18:35)
[2018-01-22] MEDS: PHENYLEPHRINE 80 MG in IV NS 0.9% 250 ML IV PRN ×5 (02:37→20:16)
[2018-01-22 04:26] LABS: HEMATOCRIT 22 % (39-51); HEMOGLOBIN 7.4 g/dL (13.5-17.5); LYMPHOCYTES # (AUTO) 0.6 /CMM (0.8-4.8); LYMPHOCYTES % (AUTO) 3.5 % (20.0-44.0); MEAN CORPUSCULAR HGB CONC 34 g/dl (31.0-36.0); MEAN CORPUSCULAR VOLUME 92 fL (80-96); MONOCYTES # (AUTO) 0.2 /CMM (0.1-1.30); MONOCYTES % (AUTO) 1.5 % (2.0-12.0); NEUTROPHILS # (AUTO) 15.9 /CMM (1.8-8.9); PLATELET COUNT (AUTO) 144 /CMM (150-450); RDW COEFFICIENT OF VARIATION 17.2 (11.5-15.0); RED BLOOD CELL COUNT(AUTO) 2.35 MIL/uL (4.5-6.0); WHITE BLOOD COUNT (AUTO) 16.7 K/uL (4.3-11.0)
[2018-01-22 04:50] LABS: ALBUMIN 1.9 g/dL (3.4-5.0); BILIRUBIN,TOTAL 0.8 mg/dL (0.2-1.0); CALCIUM, SERUM 7.2 mg/dL (8.5-10.1); CREATININE 2.6 mg/dL (0.6-1.3); MAGNESIUM 1.9 mg/dL (1.8-2.4); PHOSPHORUS 6.1 mg/dL (2.5-4.9); POTASSIUM 4.8 mmol/L (3.5-5.1); TOTAL PROTEIN, SERUM 4.2 g/dL (6.4-8.2)
[2018-01-22 05:07] LABS: BAND % (MANUAL) 10 % (0.0-5.0); LYMPHOCYTES % (MANUAL) 3 % (16-48); MONOCYTES % (MANUAL) 2 % (0-11.0); NEUTROPHILS % (MANUAL) 85 (42-76)
[2018-01-22 05:27] LABS: INR 1.1 (0.87-1.13)
[2018-01-22 05:28] LABS: D-DIMER 4.76 mg/L(FEU (0.17-0.50)
--- NOTE | 2018-01-22 06:10 | NUR ---
RN CLOSING NOTES PT REMAINS STABLE OF THE MOMENT. ALL DUE MEDS GIVEN, AM CARE PROVIDED. WILL ENDORSE EMMY TO AM RN
--- NOTE | 2018-01-22 06:20 | NUR ---
RN NOTES PER DR DRAKE, PATIENT I/O IS VERY POSITIVE AND HIS FLUIDS NEED TO BE LESSENED. PER MD, SOME OF HIS IV ABX NEEDS TO BE CONCENTRATED AND CONVEYED TO PHARMACY. WILL ENDORSE TO AM RN
--- NOTE | 2018-01-22 07:05 | NUR ---
RN INITIAL NOTES RECEIVED PT INTUBATED, ON VENT. NO RESPIRATORY DISTRESS NOTED. NO SOB NOTED. NO SIGNS OF PAIN NOTED. HOB ELEVATED. RIGHT SUBCLAVIAN TLC AND RIGHT FEMORAL HD CATH IN PLACE. PT ON SHEREE AT 300MCG/MIN. WILL CLOSELY MONITOR BP. ON VERSED AT 10MG/HR, WILL TITRATE ACCORDINGLY. OG IN PLACE, CLAMPED. PT ON NPO. FC IN PLACE. PT COMFORTABLE. ON BARIMAX. BLE ELEVATED. WILL CONTINUE TO MONITOR.
--- NOTE | 2018-01-22 07:58 | NUR ---
RT PT RECEIVED ORALLY INTUBATED WITH A 7.5 ETT SECURED AT 25CM AT THE LIP LINE. PT RESPONDS TO STIMULI WHEN SX'D. VENT ALARMS ARE SET AND AUDIBLE WITH BVM BY BEDSIDE. SOCK LINER CUFF PRESSURE NOTED. VENT IS PLUGGED INTO RED OUTLET. PT SX'D SMALL WHITE/CLEAR THIN SECRETIONS. NO RESPIRATORY DISTRESS NOTED AT THIS TIME, WILL CONTINUE TO MONITOR. Addendum: 01/22/18 at 0759 by MARGOT SILVA RT Amended: Links added.
[2018-01-22] MEDS: BACITRACIN/POLYMYXIN B 15 GM TUBE TP SCH (08:12)
[2018-01-22] MEDS: MEROPENEM 500 MG in IV NS 0.9% 50 ML IV SCH ×2 (08:12→21:40)
[2018-01-22] MEDS: HEPARIN SODIUM, PORCINE 5000 UNITS/1 ML VIAL SQ SCH ×2 (08:13→21:44)
[2018-01-22] MEDS: HYDROCORTISONE SOD SUCCINATE 100 MG/2 ML VIAL IV SCH (08:13)
[2018-01-22] MEDS: Z GUARD REMEDY 2 OZ OINT TP SCH ×2 (08:14→17:20)
--- NOTE | 2018-01-22 10:15 | NUR ---
RN NOTES 0830 HD STARTED. PT ON SHEREE AT 300MCG/MIN. VS STABLE. NO RESPIRATORY DISTRESS NOTED. WILL CLOSELY MONITOR. 1015 HD DONE. NOTHING REMOVED. TOLERATED WELL. VS WNL. PT REMAINS ON SHEREE AT 300MCG/MIN. WILL CONTINUE TO MONITOR.
--- NOTE | 2018-01-22 11:20 | NUR ---
RN NOTES SEEN AND EXAMINED BY DR. MOJICA. PT REMAINS INTUBATED. ON VENT. NO RESPIRATORY DISTRESS NOTED. NO SOB NOTED. NO SIGNS OF PAIN NOTED. PT ON SHEREE AT 300MCG/MIN AND VERSED 10MG/HR. HD DONE. TOLERATED WELL. WILL CONTINUE TO MONITOR.
[2018-01-22 12:14] LABS: ABG BASE EXCESS -3.6 mmol/L; ABG OXYGEN SATURATION 95.3 % (92.0-98.5); ABG PCO2 35.7 mmHg (35.0-45.0); ABG PH 7.386 (7.350-7.450); ABG PO2 91.5 mmHg (75.0-100.0); AaDO2 152.6 mmHg; COHb 0.3 % (0.5-1.5); O2Hb 94.1 % (94.0-97.0); PEEP,BG 0 cm H2O; SITE, ABG Right Radial; VT, ABG 500 mL
--- NOTE | 2018-01-22 12:30 | NUR ---
RN NOTES ABG RESULT RELAYED TO DR. MOJICA. NO RESPIRATORY DISTRESS NOTED. NO SOB NOTED. WILL CONTINUE CURRENT SETTINGS ORDERED. WILL MONITOR.
[2018-01-22] MEDS: GLUCERNA 1.2 1,000 ML BOTTLE NG PRN (17:21)
--- NOTE | 2018-01-22 18:42 | NUR ---
RN CLOSING NOTES PT REMAINS STABLE. NO SIGNIFICANT CHANGE NOTED. REMAINS INTUBATED, ON VENT. REMAINS ON SHEREE AT 300MCG/MIN AND VERSED AT 10MG/HR. VS CLOSELY MONITORED. TX ORDERED. KEPT CLEAN AND REPOSITIONED Q2. WILL ENDORSE FOR CONTINUITY OF CARE.
--- NOTE | 2018-01-22 19:30 | NUR ---
CORRECTIONAL CASEWORK SPECIALIST INITIAL NOTE RECEIVED PATIENT SEDATED. NO S/S OF PAIN OR DISCOMFORT. NO RESPIRATORY DISTRESS NOTED, VENT DEPENDENT, ETT 7.5CM/25CM AT THE LIP. WITH VENT SETTINGS AC 12, TV 500, FIO2 40%, PEEP 0. NOTED WITH GENERALIZED WEEPING EDEMA. ON TELE MONITOR SR WITH INVERTED TWAVE. WITH GTF AT 20ML/HR, NOTED WITH RESIDUAL >100ML. HOLDING FEEDING AT THIS TIME. OGT PATENT, INTACT, IN PLACE. WITH F/C PATENT AND INTACT, DRAINING BY GRAVITY, LUISITO WITH SEDIMENTS OUTPUT. WITH RIGHT SUBCLAVIAN TLC PATENT AND INTACT, WITH VERSED AT 10MG/HR, SHEREE AT 300MCG/MIN. RIGHT EJ 20G PATENT AND INTACT. RIGHT FEMORAL HD CATH IN PLACE. PATIENT ON [facility] BED. HOB ELEVATED. SIDE RAILS UP AND LOCKED. BED KEPT AT LOWEST POSITION. WILL CONTINUE TO MONITOR.
--- NOTE | 2018-01-22 19:34 | NUR ---
PT RECEIVED ORALLY INTUBATED WITH A 7.5 ET SECURED AT 25CM AT THE LIP LINE. PT IS ON THE VENT WITH NOTED SETTINGS. VENT ALARMS ARE SET AND AUDIBLE, AMBU BAG @ BEDSIDE. QUALITY ASSURANCE ADVISOR CUFF PRESSURE NOTED. VENT IS PLUGGED INTO RED OUTLET. PT SX'D SMALL THICK WHITE SECRETIONS. NO RESPIRATORY DISTRESS NOTED AT THIS TIME, WILL CONTINUE TO MONITOR.
[2018-01-22] MEDS: MICAFUNGIN SODIUM 100 MG in IV NS 0.9% 100 ML IV SCH (20:16)
[2018-01-23] VITALS (116 sets, daily range): BP systolic 78–128; BP diastolic 44–79
[2018-01-23] MEDS: PHENYLEPHRINE 80 MG in IV NS 0.9% 250 ML IV PRN ×6 (00:06→22:16)
--- NOTE | 2018-01-23 02:00 | NUR ---
GOVERNMENT AFFAIRS FELLOW NOTE RELAYED TO PROJECT ACCOUNTANT REGARDING PATIENT STILL HAVING GT RESIDUAL GREATER THAN 100. WITH NNO AT THIS TIME, AND MONITOR RESIDUALS. WILL CONTINUE TO MONITOR.
[2018-01-23] MEDS: MIDAZOLAM HCL 100 MG in IV NS 0.9% 80 ML IV PRN ×3 (04:09→22:35)
[2018-01-23 05:02] LABS: CALCIUM, SERUM 7.2 mg/dL (8.5-10.1); CREATININE 2.4 mg/dL (0.6-1.3); PHOSPHORUS 5.8 mg/dL (2.5-4.9); POTASSIUM 4.6 mmol/L (3.5-5.1)
[2018-01-23 05:03] LABS: HEMATOCRIT 24 % (39-51); HEMOGLOBIN 8.1 g/dL (13.5-17.5); LYMPHOCYTES # (AUTO) 1.3 /CMM (0.8-4.8); LYMPHOCYTES % (AUTO) 8.5 % (20.0-44.0); MEAN CORPUSCULAR HGB CONC 34 g/dl (31.0-36.0); MEAN CORPUSCULAR VOLUME 92 fL (80-96); MONOCYTES # (AUTO) 0.1 /CMM (0.1-1.30); MONOCYTES % (AUTO) 0.4 % (2.0-12.0); NEUTROPHILS % (AUTO) 91.1 % (43.0-81.0); PLATELET COUNT (AUTO) 141 /CMM (150-450); RDW COEFFICIENT OF VARIATION 17.3 (11.5-15.0); RED BLOOD CELL COUNT(AUTO) 2.58 MIL/uL (4.5-6.0); WHITE BLOOD COUNT (AUTO) 15.4 K/uL (4.3-11.0)
[2018-01-23 05:25] LABS: BAND % (MANUAL) 6 % (0.0-5.0); LYMPHOCYTES % (MANUAL) 4 % (16-48); MONOCYTES % (MANUAL) 1 % (0-11.0); NEUTROPHILS % (MANUAL) 89 (42-76)
--- NOTE | 2018-01-23 06:15 | NUR ---
US ADMINISTRATIVE LAW JUDGE NOTE RESIDUAL AT 60ML. RESUMED GTF AT 10ML/HR. WILL CONTINUE TO MONITOR.
[2018-01-23] MEDS: NOREPINEPHRINE 16 MG in IV D5W 500 ML IV PRN ×2 (06:32→17:46)
--- NOTE | 2018-01-23 07:41 | NUR ---
FREIGHT RATE ANALYST CLOSING NOTE NO SIGNIFICANT CHANGES OVERNIGHT. NO RESPIRATORY DISTRESS NOTED, TOLERATING VENT SETTINGS. OGT PATENT AND INTACT. WITH SHEREE AT 300MCG/MIN, LEVO AT 1 MCG/MIN, VERSED 10MG/HR. KEPT CLEAN AND DRY. WOUND TX DONE. NO N/V. TURNED AND REPOSITIONED Q2 AND PRN. HOB ELEVATED. SIDE RAILS UP AND LOCKED. BED KEPT AT LOWEST POSITION. CONTINUITY OF CARE ENDORSED TO AM NURSE.
--- NOTE | 2018-01-23 08:06 | NUR ---
WOUND CARE CONSULT: PT SEEN FOR REDNESS TO LEFT LOWER LEG. LEFT LOWER LEG REDNESS NOTED. LOWER LEGS CONTINUE TO HAVE 4+ PITTING EDEMA WITH WEEPING. UNABLE TO PALPATE PERIPHERAL PULSES DUE TO EDEMA. LEGS ELEVATED ON PILLOWS. DEFER TO MD FOR LOWER LEG REDNESS. DISCUSSED WITH NURSING STAFF AND DR DRAKE. WILL SEE PRN.
[2018-01-23] MEDS: HYDROCORTISONE SOD SUCCINATE 100 MG/2 ML VIAL IV SCH (08:52)
[2018-01-23] MEDS: Z GUARD REMEDY 2 OZ OINT TP SCH ×2 (08:53→17:05)
[2018-01-23] MEDS: BACITRACIN/POLYMYXIN B 15 GM TUBE TP SCH (08:53)
[2018-01-23] MEDS: MEROPENEM 500 MG in IV NS 0.9% 50 ML IV SCH ×2 (08:53→21:29)
[2018-01-23] MEDS: HEPARIN SODIUM, PORCINE 5000 UNITS/1 ML VIAL SQ SCH ×2 (08:54→21:28)
[2018-01-23 10:00] LABS: ABG BASE EXCESS -4.7 mmol/L; ABG OXYGEN SATURATION 95.4 % (92.0-98.5); ABG PCO2 35.6 mmHg (35.0-45.0); ABG PH 7.369 (7.350-7.450); ABG PO2 90.4 mmHg (75.0-100.0); AaDO2 153.9 mmHg; COHb 0.2 % (0.5-1.5); MetHb 1.3 % (0.0-1.5); PEEP,BG 0 cm H2O; SITE, ABG Right Radial; VT, ABG 500 mL
--- NOTE | 2018-01-23 10:26 | NUR ---
HORSE GROOMER NOTE 0720: Received patient sedated. With ETT to vent, no respiratory distress noted at this time. With OGT intact, noted with 40mL residuals. Kept HOB elevated, on 10mL/hr, will keep on 10mL/hr for now. MODEL MAKER PLASTER restraints on for safety. With Dangelo cath intact, noted with dark jorge urine with sediments. REJ PIV intact, RCW TLC intact, with right fem HD cath intact. On Norm @ 300mcg and Levo @ 1mcg, will titrate as ordered. CVP reads 7. ST 100's on the monitor. 0830: S/E by Dr. Man, no new order at this time. 0915: Rendered sedation vacation, patient noted Aflutter 120-160'2 on the monitor and noted with increased WOB. Placed back on 10mg/hr of Versed and informed Dr. Man. 0945: Dr. Man ordered ABG and made him aware for the result, with order to start on Amio bolus and drip. 1020: Followed up with pharmacy re: Amio drip. Aflutter 130's at this time.
[2018-01-23] MEDS ORDERED: AMIODARONE 150 MG in IV D5W 100 ML IV ONE (10:30)
[2018-01-23] MEDS ORDERED: AMIODARONE 900 MG in IV D5W 482 ML IV PRN (10:30)
--- NOTE | 2018-01-23 11:30 | NUR ---
PROFESSOR OF LEGAL STUDIES NOTE S/E by Dr. Moya, made aware for the left leg redness, no new order at this time. Will continue elevating and monitoring.
[2018-01-23] MEDS ORDERED: ALBUMIN 5% 25 GM in PREMIX 1 EA IV ONE (12:00)
--- NOTE | 2018-01-23 13:54 | NUR ---
RT NOTE: PATIENT RECEIVED ORALLY INTUBATED WITH 7.5 ETT SECURED AT 25 CM MID LIP LINE(BITE BLOCK IN PLACE) ON PB 840 VENT. ALARMS VERIFIED AND AUDIBLE. SUCTIONED AND LAVAGED MODERATE-LARGE AMOUNT OF THICK HARRIS SECRETIONS. VENT PLUGGED INTO RED OUTLET. AMBU BAG AT [facility].
[2018-01-23] MEDS: ALBUMIN 25% 25 GM in PREMIX 1 EA IV PRN (14:20)
[2018-01-23] MEDS: VANCOMYCIN 500 MG in IV D5W 100 ML IV PRN (16:51)
--- NOTE | 2018-01-23 17:55 | NUR ---
RN ER NOTE 1430: Done with HD, patient with episodes of Afib RVR 150's at times. Patient used 100mL of Albumin and had to increase Levo to 12mcg. 1745: Patient on 4mcg of Levophed, S/E by ID, no new order at this time. On Norm @ 300mcg. GT feeding still on 10mL/hr for residuals of 60mL. Kept clean, warm and dry. Needs anticipated. Now on Amio 0.5mg/hr. Still on Afib 110-130's.
--- NOTE | 2018-01-23 19:17 | NUR ---
PT RECEIVED ORALLY INTUBATED WITH A 7.5 ET SECURED AT 25 CM AT THE LIP LINE. PT IS ON THE VENT WITH NOTED SETTINGS. VENT ALARMS ARE SET AND AUDIBLE, AMBU BAG @ BEDSIDE. SENIOR SALES ENGINEER CUFF PRESSURE NOTED. VENT IS PLUGGED INTO RED OUTLET. SX'D MODERATE THICK PALE YELLOW SECRETIONS. NO RESPIRATORY DISTRESS NOTED AT THIS TIME, WILL CONTINUE TO MONITOR.
--- NOTE | 2018-01-23 19:30 | NUR ---
DIRECTOR OF DESIGN INITIAL NOTE RECEIVED PATIENT SEDATED. NO S/S OF PAIN OR DISCOMFORT. NO RESPIRATORY DISTRESS NOTED, VENT DEPENDENT, ETT 7.5CM/25CM AT THE LIP. WITH VENT SETTINGS AC 12, TV 500, FIO2 40%, PEEP 0, SPO2 100%. NOTED WITH GENERALIZED WEEPING EDEMA. ON TELE MONITOR AFLUTTER. WITH GTF AT 10ML/HR, NOTED WITH RESIDUAL >100ML. HOLDING FEEDING AT THIS TIME. OGT PATENT, INTACT, IN PLACE. WITH F/C PATENT AND INTACT, DRAINING BY GRAVITY, LUISITO WITH SEDIMENTS OUTPUT. WITH RIGHT SUBCLAVIAN TLC PATENT AND INTACT, WITH VERSED AT 10MG/HR, SHEREE AT 300MCG/MIN, LEVO AT 4MCG/MIN, AMIO AT 0.5MG/MIN. RIGHT EJ 20G PATENT AND INTACT WITH TKO. RIGHT FEMORAL HD CATH IN PLACE. PATIENT ON [facility] BED. HOB ELEVATED. SIDE RAILS UP AND LOCKED. BED KEPT AT LOWEST POSITION. WILL CONTINUE TO MONITOR.
[2018-01-23] MEDS: MICAFUNGIN SODIUM 100 MG in IV NS 0.9% 100 ML IV SCH (20:01)
--- NOTE | 2018-01-23 22:40 | NUR ---
LAUNCH OPERATOR NOTE FAMILY AT BEDSIDE. UPDATED ON PTS CONDITION.
[2018-01-24] VITALS (105 sets, daily range): BP systolic 83–113; BP diastolic 43–69
[2018-01-24] MEDS: PHENYLEPHRINE 80 MG in IV NS 0.9% 250 ML IV PRN ×5 (02:48→20:46)
[2018-01-24] MEDS: GLUCERNA 1.2 1,000 ML BOTTLE NG PRN (04:18)
[2018-01-24 04:35] LABS: BASOPHILS % (AUTO) 0.1 % (0.0-2.0); EOSINOPHILS % (AUTO) 0.2 % (0.0-6.0); HEMATOCRIT 24 % (39-51); HEMOGLOBIN 8.3 g/dL (13.5-17.5); LYMPHOCYTES # (AUTO) 1.3 /CMM (0.8-4.8); LYMPHOCYTES % (AUTO) 8.6 % (20.0-44.0); MEAN CORPUSCULAR HGB CONC 35 g/dl (31.0-36.0); MEAN CORPUSCULAR VOLUME 91 fL (80-96); MONOCYTES # (AUTO) 0.1 /CMM (0.1-1.30); MONOCYTES % (AUTO) 0.4 % (2.0-12.0); NEUTROPHILS # (AUTO) 13.4 /CMM (1.8-8.9); NEUTROPHILS % (AUTO) 90.7 % (43.0-81.0); PLATELET COUNT (AUTO) 147 /CMM (150-450); RDW COEFFICIENT OF VARIATION 17.7 (11.5-15.0); RED BLOOD CELL COUNT(AUTO) 2.65 MIL/uL (4.5-6.0); WHITE BLOOD COUNT (AUTO) 14.8 K/uL (4.3-11.0)
[2018-01-24 04:55] LABS: ALBUMIN 1.9 g/dL (3.4-5.0); BILIRUBIN,TOTAL 0.9 mg/dL (0.2-1.0); CALCIUM, SERUM 6.9 mg/dL (8.5-10.1); CREATININE 2.4 mg/dL (0.6-1.3); PHOSPHORUS 5.5 mg/dL (2.5-4.9); POTASSIUM 4.9 mmol/L (3.5-5.1); TOTAL PROTEIN, SERUM 4.3 g/dL (6.4-8.2)
[2018-01-24 05:03] LABS: BAND % (MANUAL) 5 % (0.0-5.0); LYMPHOCYTES % (MANUAL) 12 % (16-48); MONOCYTES % (MANUAL) 1 % (0-11.0); NEUTROPHILS % (MANUAL) 82 (42-76)
--- NOTE | 2018-01-24 07:01 | NUR ---
BRIQUETTE MACHINE OPERATOR HELPER NOTE DR. DRAKE AT BEDSIDE, S/P CARDIOVERSION, PATIENT CONVERTED TO SR.
--- NOTE | 2018-01-24 07:29 | NUR ---
BEHAVIORAL HEALTH ASSOCIATE CLOSING NOTE NO SIGNIFICANT CHANGES OVERNIGHT. NO RESPIRATORY DISTRESS NOTED, TOLERATING VENT SETTINGS. OGT PATENT AND INTACT. NOT TOLERATING GTF. WITH SHEREE AT 300MCG/MIN, LEVO AT 4 MCG/MIN, VERSED 10MG/HR, AMIO 0.5MG/MIN. KEPT CLEAN AND DRY. WOUND TX DONE. NO N/V. S/P CARDIOVERSION BY DR. DRAKE, TOLERATED PROCEDURE WELL, BACK TO SR 93. TURNED AND REPOSITIONED Q2 AND PRN. HOB ELEVATED. SIDE RAILS UP AND LOCKED. BED KEPT AT LOWEST POSITION. CONTINUITY OF CARE ENDORSED TO AM NURSE.
--- NOTE | 2018-01-24 08:44 | NUR ---
SHIPPING HAND NOTE 0720: Received patient sedated, with ETT to vent, tolerated settings at this time. No respiratory distress noted at this time. With OGT intact, feeding on hold for high residuals even on 10mL/hr rate. SP cardioversion, noted with P wave now, ST 100's. Dangelo cath intact, noted with minimal dark jorge colored urine drained to BSD. BACK UP WORKER restraints on for safety. On Barimaxx, turning on rotation. REJ PIV intact, RCW TLC intact, noted with weeping. Right femoral HD cath intact. On Norm @ 300mcg, Levo @ 4mcg and Amio @ 0.5mg. Will titrate pressors as able. Will finish Amio drip therapy per Dr. Man. 0820: EKG result in, ST with 1st degree AVB, made Dr. Man aware. 0840: No any significant changes noted at this time. Kept patient comfortable.
[2018-01-24] MEDS: HYDROCORTISONE SOD SUCCINATE 100 MG/2 ML VIAL IV SCH (09:12)
[2018-01-24] MEDS: Z GUARD REMEDY 2 OZ OINT TP SCH ×2 (09:12→16:36)
[2018-01-24] MEDS: MEROPENEM 500 MG in IV NS 0.9% 50 ML IV SCH ×2 (09:12→21:41)
[2018-01-24] MEDS: BACITRACIN/POLYMYXIN B 15 GM TUBE TP SCH (09:13)
[2018-01-24] MEDS: HEPARIN SODIUM, PORCINE 5000 UNITS/1 ML VIAL SQ SCH ×2 (09:13→20:31)
[2018-01-24] MEDS: MIDAZOLAM HCL 100 MG in IV NS 0.9% 80 ML IV PRN ×2 (09:33→17:31)
--- NOTE | 2018-01-24 09:35 | NUR ---
GRINDER OPERATOR EXTERNAL TOOL NOTE Rendered sedation vacation, noted with increased RR 30 from 19. Noted with facial grimace to deep pain, does not follow commands. Placed back on Versed @10mg/hr.
--- NOTE | 2018-01-24 15:41 | NUR ---
COMPONENT OVERHAUL OPERATOR NOTE 1300: Reported to Dr. Moya's magistrate assistant, patient still with residuals and held tube feeding since morning. Patient has no GI prophylaxis yet, said he will review patient's chart and may start on Reglan. Awaiting order. 1520: Cleaned patient, noted with soft brown BM. Positioned for comfort. 1540: Family at bedside, updated re: patient's condition. No significant changes.
[2018-01-24] MEDS ORDERED: METOCLOPRAMIDE HCL 10 MG/2 ML VIAL IV SCH (16:00)
[2018-01-24] MEDS: PANTOPRAZOLE 40 MG VIAL IV SCH (16:36)
[2018-01-24] MEDS: METOCLOPRAMIDE HCL 10 MG/2 ML VIAL IV SCH ×2 (16:36→21:44)
[2018-01-24] MEDS: NOREPINEPHRINE 16 MG in IV D5W 500 ML IV PRN (17:10)
--- NOTE | 2018-01-24 19:30 | NUR ---
CHILD STUDY TEAM DIRECTOR: RECEIVED ORALLY INTUBATED PT WT VENT SETTINGS ORDERED. 02 SAT ABOVE 96%. SEDATED ON VERSED DRIP AT 10MG/HR. WITHDRAWS TO PAIN STIMULI. NO ACUTE DISTRESS, NO EVIDENCE OF DISCOMFORT. SR-ST ON LEAFLET DISTRIBUTOR WT HR IN 90s TO LOW 100. AFEBRILE. CONTINUE ON NEOSYNEPHRINE DRIP AT 300MCG/MIN AND LEVOPHED AT 3MCG/MIN. NO S/S OF COMPLICATIONS ON RT. SUBCLAVIAN TLC AND RT. FEM HD CATH. NOTED WT ANASARCA/WEEPING EDEMA PARTICULARLY ON BILAT. UPPER EXTREMITIES. OGT REMAINED CLAMPED WT GREEN COLORED RESIDUAL OF 150CC. BILAT. SOFT WRIST RESTRAINTS IN PLACE TO PREVENT SELF EXTUBATION AND EPISODES OF TRYING TO REACH TUBINGS. F/C PATENT AND INTACT DRAINING MINIMAL AMT. OF LUISITO COLORED URINE TO GRAVITY. HOB ELEVATED AT 45 DEGREES. SAFETY PRECAUTION NOTED. WILL CONTINUE TO MONITOR.
[2018-01-24] MEDS: MICAFUNGIN SODIUM 100 MG in IV NS 0.9% 100 ML IV SCH (20:25)
--- NOTE | 2018-01-24 21:29 | NUR ---
PATIENT RECEIVED ORALLY INTUBATED ON VENT. ALARMS VERIFIED AND AUDIBLE. SUCTIONED AND LAVAGED MODERATE-LARGE AMOUNT OF THICK HARRIS SECRETIONS. VENT PLUGGED INTO RED OUTLET. AMBU BAG AT HOB. Addendum: 01/24/18 at 2129 by [address] RT Amended: Links added.
[2018-01-25] VITALS (84 sets, daily range): BP systolic 39–155; BP diastolic 20–91
--- NOTE | 2018-01-25 | NUR ---
TOOL ROOM SUPERVISOR: OGT RESIDUAL STILL AT 100CC. WILL CONTINUE TO HOLD GT FEEDING AT THIS TIME.
[2018-01-25] MEDS: PHENYLEPHRINE 80 MG in IV NS 0.9% 250 ML IV PRN ×6 (01:07→22:17)
[2018-01-25] MEDS: MIDAZOLAM HCL 100 MG in IV NS 0.9% 80 ML IV PRN ×3 (03:08→22:23)
[2018-01-25] MEDS: METOCLOPRAMIDE HCL 10 MG/2 ML VIAL IV SCH ×4 (04:42→22:12)
[2018-01-25 05:05] LABS: HEMATOCRIT 27 % (39-51); MEAN CORPUSCULAR HGB CONC 34 g/dl (31.0-36.0); MEAN CORPUSCULAR VOLUME 92 fL (80-96); PLATELET COUNT (AUTO) 142 /CMM (150-450); RDW COEFFICIENT OF VARIATION 17.7 (11.5-15.0); WHITE BLOOD COUNT (AUTO) 14.8 K/uL (4.3-11.0)
[2018-01-25 05:06] LABS: CALCIUM, SERUM 6.5 mg/dL (8.5-10.1); MAGNESIUM 2.1 mg/dL (1.8-2.4); PHOSPHORUS 6.3 mg/dL (2.5-4.9); POTASSIUM 5.2 mmol/L (3.5-5.1)
--- NOTE | 2018-01-25 06:30 | NUR ---
FOOD BAGGING MACHINE OPERATOR: CONTINUE ON LEVOPHED AT 8 MCG/MIN, VERSED AT 10MG/HR AND SHEREE. DRIP AT 300MCG/MIN. OGT REMAINED CLAMPED FOR HIGH RESIDUAL.
--- NOTE | 2018-01-25 07:30 | NUR ---
INITIAL NOTES: Received patient sedated pupils reactive. pt ST on monitor 102. pt on ventilator setting:AC-12, PEEP 0, VT-500, FIO@-50% Intubated with 7.5 cuffed ETT AT 25 CM ZACH.Tolerated settings at this time. No respiratory distress noted at this time. h OGT intact, feeding started at 10mL/hr rate 60 ml residual. Dangelo cath intact, noted with minimal dark jorge colored urine drained. DECISION UNIT RN restraints on for safety. On Barimaxx, turning on rotation. Right EJ PIV intact, Right Chest Wall TLC intact, noted with weeping. Right femoral HD cath intact. On Norm @ 300mcg, Levo @ 8mcg and versed at 10 ml. Will titrate pressors as able bed in low position locked family at bedside.
[2018-01-25 07:55] LABS: BAND % (MANUAL) 4 % (0.0-5.0); LYMPHOCYTES % (MANUAL) 6 % (16-48); MONOCYTES % (MANUAL) 3 % (0-11.0); NEUTROPHILS % (MANUAL) 87 (42-76)
[2018-01-25] MEDS ORDERED: HYDROCORTISONE SOD SUCCINATE 100 MG/2 ML VIAL IV SCH ×2 (09:00)
[2018-01-25] MEDS: MEROPENEM 500 MG in IV NS 0.9% 50 ML IV SCH ×2 (09:12→21:10)
[2018-01-25] MEDS: HEPARIN SODIUM, PORCINE 5000 UNITS/1 ML VIAL SQ SCH ×2 (09:13→21:15)
[2018-01-25] MEDS: BACITRACIN/POLYMYXIN B 15 GM TUBE TP SCH (09:13)
[2018-01-25] MEDS: Z GUARD REMEDY 2 OZ OINT TP SCH ×2 (09:15→16:23)
[2018-01-25] MEDS: GLUCERNA 1.2 1,000 ML BOTTLE NG PRN (09:48)
--- NOTE | 2018-01-25 09:54 | NUR ---
ET TUBE ADVANCED FROM 24CM TO 27 CM. PER MD ORDER. ALARMS SET ZERO DISTRESS B/S EQUAL. Addendum: 01/25/18 at 0958 by NHI ROSSI RT Amended: Links added.
[2018-01-25] MEDS: ALBUMIN 25% 25 GM in PREMIX 1 EA IV PRN (15:41)
[2018-01-25] MEDS: PANTOPRAZOLE 40 MG VIAL IV SCH (16:22)
[2018-01-25] MEDS: VANCOMYCIN 500 MG in IV D5W 100 ML IV PRN (16:22)
--- NOTE | 2018-01-25 19:30 | NUR ---
ICU NOTES RECIVED PT ON VENT VIA ORAL ETT,40% 40% FIO2 W/ SAT OF 100 %.ON VERSED DRIP AT 10MG/HR.ON LEVOPHED AT 10MCG/MIN.PHENYLEPHRINE AT 300MCG.MIN.PT RESPONDS ONLY RO DEEP PAINFUL STIMULI.OG CHECKED FOR RESIDUAL,OBTAINE 70ML/HR.TUBE FEEDING ON HOLD.
[2018-01-25] MEDS: MICAFUNGIN SODIUM 100 MG in IV NS 0.9% 100 ML IV SCH (19:56)
--- NOTE | 2018-01-25 20:00 | NUR ---
ICU NOTES AT BEDSIDE VISITING,UPDATED W/ PT'S CONDITION.
--- NOTE | 2018-01-25 20:45 | NUR ---
ICU NOTES FAMILY CAUGHT MY ATTENTION RE:PT HAVING LT SIDED SEIZURE ACTIVITY.CALL PLACED TO CELSA EPSTEIN.RETURNED CALL W/IN 15MIN ATIVAN 2MGIVP GIVEN.CONTINUES TO HAVE SEIZURES,GIVEN ANOTHER DOSE OF ATIVAN.SURVEY QUESTIONNAIRE DESIGNER WANTED FOR US TO TAKE PT TO CT BUT INFORMED SURVEY QUESTIONNAIRE DESIGNER THAT PT. CONTINUES TO HAVE SEIZURE.
[2018-01-25] MEDS ORDERED: LORAZEPAM INJ 2 MG/ML VIAL ONE (20:59)
[2018-01-25] MEDS ORDERED: LORAZEPAM INJ 2 MG/ML VIAL IV ONE ×2 (21:00→21:30)
[2018-01-25] MEDS ORDERED: LEVETIRACETAM (500MG) 1,000 MG in IV NS 0.9% 100 ML IV STA (21:43)
[2018-01-25] MEDS ORDERED: LORAZEPAM INJ 2 MG/ML VIAL IV PRN ×2 (22:00)
[2018-01-25] MEDS ORDERED: LEVETIRACETAM (500MG) 500 MG/5 ML VIAL IV ONE (22:17)
[2018-01-25] MEDS ORDERED: PROPOFOL 100 ML ONE (23:11)
[2018-01-25] MEDS ORDERED: PROPOFOL 100 ML IV PRN (23:30)
[2018-01-26] VITALS (24 sets, daily range): BP systolic 54–126; BP diastolic 30–76
[2018-01-26] MEDS: NOREPINEPHRINE 16 MG in IV D5W 500 ML IV PRN (00:18)
[2018-01-26] MEDS ORDERED: PHENOBARBITAL SODIUM 130 MG/ML VIAL IV PRN ×2 (01:00→01:30)
[2018-01-26] MEDS: PHENYLEPHRINE 80 MG in IV NS 0.9% 250 ML IV PRN (02:30)
--- NOTE | 2018-01-26 03:02 | NUR ---
ICU NOTES BROUGHT TO CT SCAN FOR CT OF THE HEAD W/ 2RN'S IN ATTENDANCE ACCOMPANIED BY CELSA NECK BAND SETTER..PT FINALLY STOP SEIZING,PT ON MAXIMUM DOSE OF LEVOPHED AND MAXIMUM OF DOSE OF PHENYLEPHRINE.
--- NOTE | 2018-01-26 03:47 | NUR ---
FIO2 INCREASED DUE TO LOW SPO2. Addendum: 01/26/[address] RT Amended: Links added.
[2018-01-26] MEDS: METOCLOPRAMIDE HCL 10 MG/2 ML VIAL IV SCH (03:50)
--- NOTE | 2018-01-26 04:30 | NUR ---
ICU NOTES RESULT OF CT SCAN OF THE HEAD PHONED BY . ATTEMTED TO LIVE MESSAGE TO CELSA VIA HER CELL PHONE BUT DID NOT CALL BACK.
[2018-01-26 04:49] LABS: HEMATOCRIT 26 % (39-51); HEMOGLOBIN 8.6 g/dL (13.5-17.5); MEAN CORPUSCULAR HGB CONC 33 g/dl (31.0-36.0); MEAN CORPUSCULAR VOLUME 94 fL (80-96); PLATELET COUNT (AUTO) 132 /CMM (150-450); RDW COEFFICIENT OF VARIATION 18.4 (11.5-15.0); RED BLOOD CELL COUNT(AUTO) 2.74 MIL/uL (4.5-6.0); WHITE BLOOD COUNT (AUTO) 13.3 K/uL (4.3-11.0)
[2018-01-26 05:11] LABS: CALCIUM, SERUM 6.5 mg/dL (8.5-10.1); CREATININE 3.8 mg/dL (0.6-1.3); MAGNESIUM 2.6 mg/dL (1.8-2.4)
[2018-01-26] MEDS ORDERED: VASOPRESSIN INJ 20 UNIT/ML VIAL ONE (05:12)
--- NOTE | 2018-01-26 05:13 | NUR ---
FIO2 INCREASED DUE TO LOW SATURATION Addendum: 01/26/18 at [address] RT Amended: Links added.
[2018-01-26 05:16] LABS: BAND % (MANUAL) 6 % (0.0-5.0); LYMPHOCYTES % (MANUAL) 12 % (16-48); MONOCYTES % (MANUAL) 2 % (0-11.0); NEUTROPHILS % (MANUAL) 80 (42-76)
[2018-01-26 05:19] LABS: PHOSPHORUS 9.2 mg/dL (2.5-4.9); POTASSIUM 6.8 mmol/L (3.5-5.1)
[2018-01-26] MEDS: VASOPRESSIN INJ 50 UNIT in IV D5W 497.5 ML IV PRN (05:20)
--- NOTE | 2018-01-26 06:10 | NUR ---
ICU NOTES PT VOMITED MODERATE GREEN DRAINAGE.OGT CONNECTED TO LOW CONT. SUCTION AND DRAIN IMMEDIATELY 300ML GREENISH DRAINAGE.SUBCLAVIAN DRESSING SATURATED W/ABOVE.DRESSING CHANGED.
--- NOTE | 2018-01-26 06:40 | NUR ---
ICU NOTES NOTIFIED OF GRAVENESS AND SUDDEN CHANGE OF PT'S RHYTHM W/ SBP OF 64 MMHG.NOCHANGE IN VASOPRESSORS.ATTEMPTED TO GIVE REPORT TO IN COMING NURSE AT 0655.
[2018-01-26] MEDS ORDERED: CALCIUM CHLORIDE 1,000 MG/10 ML DISP.SYRIN IV ONE (07:00)
[2018-01-26] MEDS ORDERED: EPINEPHRINE (1:10,000) SYRINGE 1 MG/10 ML DISP.SYRIN IVP ONE (07:00)
[2018-01-26] MEDS ORDERED: SODIUM BICARBONATE SYR 50 MEQ/50 ML DISP.SYRIN IV ONE (07:00)
--- NOTE | 2018-01-26 07:00 | NUR ---
0700- PT ASYSTOLE. [facility] CALLED. CPR STARTED. 07- PT PRONOUNCED BY ER , DR. WARD. NURSING CARDIOLOGY PHYSICIAN ASSISTANT SAL CHE CHARGE NURSE AT BEDSIDE. 0715- FAMILY AT BEDSIDE. 0725- [facility] CALLED AND INFORMED OF . 0729- ADMITTING NOTIFIED OF PT'S . 0755- POST MORTEM CARE RENDERED. 0830- PT TAKEN DOWN TO [facility] WITH AERIAL PHOTOGRAPH INTERPRETER.
--- NOTE | 2018-01-26 07:23 | NUR ---
PT. @ 0711 Addendum: 01/26/18 at 0723 by ELGIN RODRIGUEZ RT Amended: Links added.
[2018-01-26] MEDS ORDERED: LEVETIRACETAM (500MG) 500 MG in IV NS 0.9% 100 ML IV SCH (10:00)
== END 2018-01-26 07:11 | disposition expired | DRG 870 ==
LOC: ER 06:07 → TELE1 09:09 → ICU 10:01 → TELE1 01-23 17:25 → ICU 01-23 17:42
PROC: 0BH17EZ Insertion of Endotracheal Airway into Trachea, Via Natural or Artificial Opening (ICD-10-PCS; principal; 2018-01-18)
PROC: 5A1955Z Respiratory Ventilation, Greater than 96 Consecutive Hours (ICD-10-PCS; principal; 2018-01-18)
PROC: 0W9B3ZX Drainage of Left Pleural Cavity, Percutaneous Approach, Diagnostic (ICD-10-PCS; principal; 2018-01-18)
PROC: 30233N1 Transfusion of Nonautologous Red Blood Cells into Peripheral Vein, Percutaneous Approach (ICD-10-PCS; principal; 2018-01-18)
PROC: 05H533Z Insertion of Infusion Device into Right Subclavian Vein, Percutaneous Approach (ICD-10-PCS; principal; 2018-01-18)
PROC: 5A1D70Z Performance of Urinary Filtration, Intermittent, Less than 6 Hours Per Day (ICD-10-PCS; 2018-01-21)
PROC: 06HY33Z Insertion of Infusion Device into Lower Vein, Percutaneous Approach (ICD-10-PCS; 2018-01-21)
PROC: 5A1D70Z Performance of Urinary Filtration, Intermittent, Less than 6 Hours Per Day (ICD-10-PCS; 2018-01-22)
PROC: 5A1D70Z Performance of Urinary Filtration, Intermittent, Less than 6 Hours Per Day (ICD-10-PCS; 2018-01-23)
PROC: 5A2204Z Restoration of Cardiac Rhythm, Single (ICD-10-PCS; 2018-01-24)
PROC: 5A1D70Z Performance of Urinary Filtration, Intermittent, Less than 6 Hours Per Day (ICD-10-PCS; 2018-01-25)
DX: A41.9 Sepsis, unspecified organism (principal); N17.0 Acute kidney failure with tubular necrosis; K72.00 Acute and subacute hepatic failure without coma; R65.21 Severe sepsis with septic shock; J96.01 Acute respiratory failure with hypoxia; J18.9 Pneumonia, unspecified organism; I21.A1 Myocardial infarction type 2; E87.1 Hypo-osmolality and hyponatremia; I48.92 Unspecified atrial flutter; J90 Pleural effusion, not elsewhere classified; C91.10 Chronic lymphocytic leukemia of B-cell type not having achieved remission; I42.9 Cardiomyopathy, unspecified; E87.2 Acidosis; C90.00 Multiple myeloma not having achieved remission; C78.7 Secondary malignant neoplasm of liver and intrahepatic bile duct; D69.6 Thrombocytopenia, unspecified; R74.0 Nonspecific elevation of levels of transaminase and lactic acid dehydrogenase [LDH]; I48.91 Unspecified atrial fibrillation; J44.9 Chronic obstructive pulmonary disease, unspecified; N40.0 Benign prostatic hyperplasia without lower urinary tract symptoms; R59.1 Generalized enlarged lymph nodes; R91.8 Other nonspecific abnormal finding of lung field; E88.09 Other disorders of plasma-protein metabolism, not elsewhere classified; E87.5 Hyperkalemia; I12.9 Hypertensive chronic kidney disease with stage 1 through stage 4 chronic kidney disease, or unspecified chronic kidney disease; N18.9 Chronic kidney disease, unspecified; R56.9 Unspecified convulsions; R16.2 Hepatomegaly with splenomegaly, not elsewhere classified; K80.20 Calculus of gallbladder without cholecystitis without obstruction
CPT/HCPCS: 31720; 36415; 36600; 70450-TC; 71045-TC; 76700-TC; 76942-TC; 80048-TC; 80053-TC; 80061-TC; 80076-TC; 80202-TC; 81000-TC; 82105; 82140-TC; 82232; 82272-TC; 82378; 82533; 82570-TC; 82728-TC; 82746; 82784; 82803-TC; 83540-TC; 83605-TC; 83615-TC; 83735-TC; 83935-TC; 84100-TC; 84153-TC; 84154-TC; 84155; 84165; 84300-TC; 84439-TC; 84443-TC; 84484-TC; 85025-TC; 85396; 85730-TC; 86301; 86304; 86334; 86706; 86803; 86850-TC; 86921-TC; 87040-TC; 87070-TC; 87081-TC; 87086-TC; 87340; 89051-TC; 90935-TC; 93307-TC; 94002-TC; 94003-TC; 94640-TC; 94762-TC; 99082-TC; A4216; A4606; A6402; A6403; C1751; C9113; J0171; J0282; J0330; J1644; J1650; J1720; J1953; J2060; J2185; J2248; J2250; J2270; J2370; J2405; J2543; J2560; J2765; J3370; J3490; J7030; J7040; J7050; J7060; P9016-BL; P9045; P9047; Q9967; Z7610